=== PATIENT | male | born 1950 | race Caucasian/White ===

== ENCOUNTER → 2016-11-23 | Outpatient (CLI) | payer BC ==
[~2016-11-23] MED LIST: DOXY100C41 PO; FLUT0.15 NAE; GLUCTAB4 PO; HYDR-5688 PO; NAPR1TAB9 PO
[2016-11-23 12:41] LABS: PROLACTIN 8.42 ng/mL; TESTOSTERONE,TOTAL 357.94 ng/dl (241-827)
== END | disposition home or self-care (01) ==
LOC: C.LAB1850 10:36
PROVIDERS: ATTEND Internal Medicine Pulmonary Disease
DX: N64.4 Mastodynia (principal)

== ENCOUNTER → 2016-11-26 | Outpatient (CLI) | payer BC ==
--- NOTE | 2016-11-26 08:54 | DIAGNOSTIC IMAGING REPORT ---
ULTRASOUND ABDOMINAL WALL CLINICAL HISTORY: Palpable bulge. COMPARISON STUDY: No priors. FINDINGS: Real-time, grayscale, and color flow sonography of the ventral upper abdominal wall is performed the site of interest. There is a fat-containing and nonreducible ventral hernia identified at this site. No fluid or bowel is present within the hernia sac. IMPRESSION: There is a nonreducible fat-containing ventral hernia identified at the site of interest. Electronically signed by: Luciano Agarwal M.D. 11/26/2016 8:52 AM Dictated Date/Time: 11/26/2016 8:51 AM
== END | disposition home or self-care (01) ==
LOC: C.ULTR 08:04
PROVIDERS: ATTEND Allergy & Immunology Allergy
DX: R19.00 Intra-abdominal and pelvic swelling, mass and lump, unspecified site (principal); K43.9 Ventral hernia without obstruction or gangrene

== ENCOUNTER → 2016-12-01 | Outpatient (CLI) | payer BC ==
--- NOTE | 2016-12-01 14:09 | MAMMOGRAPHY REPORT ---
MALE BILATERAL DIGITAL DIAGNOSTIC MAMMOGRAM WITH CAD AND TARGETED BILATERAL ULTRASOUND: 12/01/2016 CLINICAL HISTORY: The patient reports bilateral nipple pain/sensitivity for approximately 2 months. He denies any palpable lumps. He is not currently on any medication. TECHNIQUE: Current study was also evaluated with a Computer Aided Detection (CAD) system. Bilatera l CC and MLO views were obtained. COMPARISON: No prior exams were available for comparison. BREAST COMPOSITION: The tissue of both breasts is predominantly fatty. FINDINGS: There is fibroglandular tissue seen in bilateral subareolar and periareolar regions, cons istent with benign gynecomastia. Scattered benign appearing calcifications are noted, without suspi cious masses, calcifications, or areas of architectural distortion noted in either breast. Targeted ultrasound was performed of bilateral subareolar and periareolar regions. Fibroglandular ti ssue is seen in bilateral subareolar and periareolar regions, consistent with benign gynecomastia. No suspicious masses or other suspicious sonographic abnormalities are evident. IMPRESSION: ACR BI-RADS CATEGORY 2: BENIGN, TARGETED ULTRASOUND ACR BI-RADS CATEGORY 2: BENIGN Benign gynecomastia bilaterally, without evidence of malignancy in either breast. Recommend clinica l follow-up. The patient has been verbally notified of the results. Approximately 10% of breast cancers are not detected with mammography. A negative mammographic repor t should not delay biopsy if a clinically suggestive mass is present. Melisa Hernandez M.D. ah/:12/01/2016 08:53:12 [employer] Tender: Klaus DERAS)([place]), [facility] letter sent: Normal 1/2 BI-RADS Code: ACR BI-RADS Category 2: Benign Ultrasound BI-RADS: ACR BI-RADS Category 2: Benign
== END | disposition home or self-care (01) ==
LOC: C.MAMM 08:17
PROVIDERS: ATTEND Internal Medicine Pulmonary Disease
DX: N62 Hypertrophy of breast (principal)

== ENCOUNTER → 2016-12-20 | Outpatient (CLI) | payer BC ==
[2016-12-20 11:45] LABS: BASO % 0.3 %; BASO ABS # 0.03 K/uL (0-0.2); COMPLETE YES; EOS % 4.5 %; HEMATOCRIT 44.1 % (42-52); IG% 0.2 %; LYMPH % 11.1 %; LYMPH ABS # 0.98 K/uL (1.2-3.4); MEAN CELL VOLUME 88.4 fL (80-100); MEAN CORPUSCULAR HEMOGLOBIN 29.5 pg (25-34); MEAN CORPUSCULAR HGB CONC 33.3 g/dl (32-36); MEAN PLATELET VOLUME 10.1 fL (7.4-10.4); MONO % 4.5 %; NEUT % 79.4 %; PLATELET COUNT 293 K/uL (130-400); RED BLOOD COUNT 4.99 M/uL (4.7-6.1); WHITE BLOOD COUNT 8.85 K/uL (4.8-10.8)
[2016-12-20 11:58] LABS: BLOOD UREA NITROGEN 15 mg/dl (7-18); CALCIUM 9.2 mg/dl (8.5-10.1); CARBON DIOXIDE 32 mmol/L (21-32); CHLORIDE 104 mmol/L (98-107); CREATININE 0.89 mg/dl (0.60-1.40); GLUCOSE 92 mg/dl (70-99); POTASSIUM 4.3 mmol/L (3.5-5.1); SODIUM 140 mmol/L (136-145)
== END | disposition home or self-care (01) ==
LOC: C.CPL 10:09
PROVIDERS: ATTEND Surgery
DX: K43.9 Ventral hernia without obstruction or gangrene (principal)

== ENCOUNTER → 2017-01-21 | Day surgery (SDC) | payer BC ==
[2017-01-10 08:33] VITALS: Ht 175.3 cm; Wt 78.2 kg
[~2017-01-21] VITALS: Ht 175.3 cm; Wt 78.2 kg
[~2017-01-21] MED LIST changes: +ATROPINE SULFATE 0.1 MG/ML 5ML SYR IV PRN; +BUPIVACAINE 0.5 % 5 MG/1 ML MPF 30ML VIAL ONE; +CEFAZOLIN 2000 MG/60 ML D5W IV SCH; +DEXAMETHASONE SOD INJ 4 MG/ML VIAL ONE; +EpHEDrine SULFATE INJ 50 MG/ML AMP IV PRN; +FENTANYL CITRATE INJ 50 MCG/1 ML 2 ML VIAL ONE; +FLUMAZENIL 0.1 MG/1 ML 10 ML VIAL IV PRN; +HEPARIN SOD 5000 UNIT/0.5 ML CARP SQ SCH; +HYDROCODONE/ACETAMOPHEN 5/325MG TAB PO PRN; +HYDROmorphone INJ 0.5 MG/0.5 ML SYR IV PRN; +KETOROLAC TROMETHAMINE 15 MG/ML VIAL IV. PRN; +LABETALOL HCL IV 5 MG/ML 20ML IV PRN; +LACTATED RINGER'S 1000ML 1,000 ML IV SCH; +LIDOCAINE HCL 2% 2 ML VIAL (20MG/ML) ONE; +MIDAZOLAM HCL 1 MG/ML 2ML VIAL ONE; +NALOXONE HCL 0.4 MG/1 ML VIAL/CARP IV PRN; +ONDANSETRON INJ 2 MG/ML 2 ML VIAL IV PRN; +ONDANSETRON INJ 2 MG/ML 2 ML VIAL ONE; +PROMETHAZINE HCL INJ 12.5 MG in SODIUM CHLORIDE 0.9% 50ML 50 ML IV PRN; +PROPOFOL IV EMULSION 10 MG/ML 20 ML VIAL IV ONE; +SODIUM CHLORIDE 0.9% 1000ML 1,000 ML IV SCH
--- NOTE | 2017-01-21 09:40 | Discharge Instructions ---
Discharge Instructions Date of Service Jan 21, 2017. Admission Reason for Admission: Ventral Hernia Discharge Discharge Diagnosis / Problem: Ventral Hernia Discharge Goals Goal(s): Decrease discomfort, Improve function Activity Recommendations Activity Limitations: as noted below Lifting Limitations: no more than 10 pounds Exercise/Sports Limitations: until after follow-up appointment May Resume Sexual Activity: after follow-up appointment Shower/Bathe: tomorrow . Instructions / Follow-Up Instructions / Follow-Up Please follow-up with Dr. Mcintyre in 1-2 weeks in the office. Please call [phone] to schedule an appointment. Current Hospital Diet Patient's current hospital diet: Discharge Diet Recommended Diet: Regular Diet Pending Studies Studies pending at discharge: no Medical Emergencies . Who to Call and When: Medical Emergencies: If at any time you feel your situation is an emergency, please call 911 immediately. . Non-Emergent Contact Non-Emergency issues call your: Primary Care Provider, Surgeon Call Non-Emergent contact if: temperature is above 101, your pain is not controlled, wound has increased drainage, wound has increased redness . "Provider Documentation" section prepared by Negin Patrick. VTE Core Measure Inpt VTE Proph given/why not?: Unfractionated heparin SQ, SCD's
--- NOTE | 2017-01-21 09:41 | History and Physical ---
History & Physical Date Jan 21, 2017. Chief Complaint ventral hernia History of Present Illness The patient is a 66 year old male with complaints of Additional History Hepatic Disease: No Endocrine Disorder: No Kidney Disease: No Hypertension: No Heart Disease: No Bleeding Tendencies: No Infectious Diseases: No Allergies Coded Allergies: No Known Allergies (Unverified , 01/21/17) Home Medications Scheduled PRN Hydrocodone/Acetaminophen 5MG/325MG ([place] 5MG/325MG), 1-2 TABLET PO Q4H PRN for Pain Physical Examination Skin: warm/dry Eyes: normal inspection, EOMI Head: normocephalic Neck: supple Respiratory/Chest: normal breath sounds, no respiratory distress Cardiovascular: regular rate, rhythm Abdomen / GI: normal bowel sounds, + pertinent finding (epigastric hernia) Extremities: normal inspection Neurologic/Psych: alert, oriented x 3 Diagnosis ventral hernia discussed options/risks answered questions ok to proceed with open ventral hernia repair/mesh Plan of Treatment open repair with mesh
--- NOTE | 2017-01-21 10:14 | Medical Student: [facility] ---
Immediate Operative Summary Operative Date Jan 21, 2017. Pre-Operative Diagnosis ventral hernia Post-Operative Diagnosis same as above Procedure(s) Performed open ventral hernia repair Surgeon Dr. Mcintyre Braider Tender Surgeon(s) Negin Patrick PA-C Estimated Blood Loss 15cc Findings ventral hernia w/ defect above umbilicus Specimens none Anesthesia general Complication(s) None Disposition Recovery Room / PACU
--- NOTE | 2017-01-21 10:17 | [facility] Operative Report ---
Operative Report Operative Date Jan 21, 2017. Pre-Operative Diagnosis Ventral Hernia Post-Operative Diagnosis same with intra-abdominal fat incarceration Procedure(s) Performed open repair of ventral hernia Surgeon Dr. Christine Mcintyre Mva Reactor Operator Surgeon(s) Negin Patrick PA-C, [place], MSIII Estimated Blood Loss 15cc Findings small epigastric hernia with omental/preperitoneal fat incarceration Specimens none Anesthesia general Complication(s) None Disposition Recovery Room / PACU I attest to the content of the Intraoperative Record and any orders documented therein. Any exceptions are noted below.
[2017-01-21 10:45] VITALS: TEMP 37.5
--- NOTE | 2017-01-21 11:04 | Anesthesia Progress Nt - [facility] ---
Anesthesia Post Op Note Date & Time Jan 21, 2017 at 11:03 Vital Signs Pain Intensity: 0 Vital Signs Past 12 Hours Date Time Temp Pulse Resp B/P Pulse Ox O2 Delivery O2 Flow Rate FiO2 01/21/17 10:45 37.5 60 18 167/77 95 Room Air 01/21/17 10:39 57 10 97 01/21/17 10:39 56 10 01/21/17 10:36 126/89 01/21/17 10:34 54 15 99 01/21/17 10:34 55 15 01/21/17 10:33 37.8 57 16 126/89 97 Room Air 01/21/17 10:31 144/87 01/21/17 10:29 62 12 01/21/17 10:29 63 12 95 01/21/17 10:26 139/108 01/21/17 10:24 56 16 01/21/17 10:24 55 16 100 01/21/17 10:21 121/69 01/21/17 10:19 55 17 100 01/21/17 10:19 55 17 01/21/17 10:16 120/68 01/21/17 10:14 49 10 01/21/17 10:14 49 10 100 01/21/17 10:12 123/70 01/21/17 10:11 131/71 01/21/17 10:10 122/80 01/21/17 10:09 52 01/21/17 10:09 37.0 54 16 122/80 97 Diffusion Mask 6 01/21/17 10:09 52 98 01/21/17 08:15 36.5 65 16 175/53 96 Room Air Notes Mental Status: alert / awake / arousable, participated in evaluation Pt Amnestic to Procedure: Yes Nausea / Vomiting: adequately controlled Pain: adequately controlled Airway Patency, RR, SpO2: stable & adequate BP & HR: stable & adequate Hydration State: stable & adequate Anesthetic Complications: no major complications apparent
[2017-01-21 11:07] VITALS: BP 138/72; PULSE 52; O2SAT 95
--- NOTE | 2017-01-21 13:03 | OPERATIVE REPORT ---
DATE OF OPERATION: 01/21/2017 PREOPERATIVE DIAGNOSIS: Ventral hernia. POSTOPERATIVE DIAGNOSIS: Same with preperitoneal and omental incarceration. PROCEDURE: Open ventral hernia repair. SURGEON: Dr. Mcintyre. HEALTH INFORMATION ADMINISTRATOR: Negin Patrick PA-C. ESTIMATED BLOOD LOSS: Approximately 20 mL COMPLICATIONS: No immediate. ANESTHESIA: General. The patient tolerated the procedure well. OPERATIVE NOTE: After informed consent was obtained, the patient was taken to the operating suite, placed in supine position. After successful placement of laryngeal mask airway, the epigastric area was sterilely prepped and draped in usual fashion. A vertical incision was made directly over the visible bulge. We carried this down through the soft tissue using electrocautery. We continued down through the subcutaneous tissue until we encountered a discrete what initially I thought was a large lipoma. As I dissected the lipoma free, I noticed that it came down to a very tight neck through a small subcentimeter epigastric hernia. I slowly used electrocautery to come through and amputate the preperitoneal fat. There was also a little piece of omentum with it. We passed this off and the remainder of the omentum easily dropped back down into the abdominal cavity. We thoroughly irrigated the wound. Because of the small size of the hernia, I felt the risk-benefit would favor primary repair without mesh. I used 0 Ethibond in interrupted [id number] fashion to close the small defect. We irrigated the wound a final time. There was adequate hemostasis. We closed the deep space using 2-0 Vicryl and then closed the skin using 4-0 Monocryl in a running fashion. Marcaine was injected around the incision, both before incision as well as at the end of the case for postoperative analgesia. Dermabond glue was used as a dressing. The patient was awakened, extubated, and transferred to recovery in stable condition. I attest to the content of the Intraoperative Record and any orders documented therein. Any exceptio ns are noted below.
== END | disposition home or self-care (01) ==
LOC: X.SURG 07:37
PROVIDERS: ATTEND Surgery
DX: K43.9 Ventral hernia without obstruction or gangrene (principal); Z83.3 Family history of diabetes mellitus; Z82.49 Family history of ischemic heart disease and other diseases of the circulatory system; Z82.3 Family history of stroke

== ENCOUNTER 2017-03-20 14:18 | Emergency (ER) | payer BC ==
[~2017-03-20] VITALS: Ht 177.8 cm; Wt 78.0 kg
[2017-03-20 14:34] VITALS: TEMP 36.7; Ht 177.8 cm; Wt 78.0 kg
[2017-03-20] MEDS ORDERED: LIDO/EPINEPHRINE/SOD BICARB 20 ML VIAL INFIL ONE (15:02)
--- NOTE | 2017-03-20 16:00 | DIAGNOSTIC IMAGING REPORT ---
LEFT KNEE 2 VIEWS HISTORY: left knee pain COMPARISON: None. FINDINGS: There is no fracture or dislocation. Moderate knee effusion. Mild osteoarthritis. Anterior soft tissue swelling. No radiopaque foreign bodies. IMPRESSION: No fractures. Moderate left knee effusion. Electronically signed by: Kenji Martinez M.D. 03/20/2017 3:59 PM Dictated Date/Time: 03/20/2017 3:58 PM
[2017-03-20] MEDS ORDERED: FLUT0.15 NAE (16:04)
[2017-03-20] MEDS ORDERED: NAPR1TAB9 PO (16:04)
[2017-03-20] MEDS ORDERED: GLUCTAB4 PO (16:04)
[2017-03-20 16:21] LABS: SYNOVIAL FLUID APPEARANCE CLOUDY; SYNOVIAL FLUID COLOR YELLOW; SYNOVIAL FLUID MONONUC RELAT 12.3 %; SYNOVIAL FLUID POLYNUC RELAT 87.7 %
--- NOTE | 2017-03-20 17:12 | DIAGNOSTIC IMAGING REPORT ---
LEFT LOWER EXTREMITY VENOUS DOPPLER HISTORY: swelling leg COMPARISON STUDY: None. FINDINGS: There is normal compressibility, flow, and augmentation within the left lower extremity deep venous system. There is a 3.7 x 2.5 x 1.4 cm popliteal cyst. IMPRESSION: No DVT within the left lower extremity. Electronically signed by: Kenji Martinez M.D. 03/20/2017 5:11 PM Dictated Date/Time: 03/20/2017 5:10 PM
[2017-03-20] MEDS ORDERED: DOXYCYCLINE HYCLATE 100 MG CAP PO ONE (18:00)
[2017-03-20] MEDS ORDERED: DOXY100C41 PO (18:13)
--- NOTE | 2017-03-20 18:16 | EMERGENCY ROOM VISIT NOTE ---
History Report prepared by Criss: Denisha Doan Under the Supervision of: Dr. Naldo Dougherty D.O. First contact with patient: 14:49 Chief Complaint: LEG PAIN,LEG INJURY Stated Complaint: L AND R KNEE PAIN/L IS [place] History of Present Illness The patient is a 66 year old male who presents to the Emergency Room with complaints of persistent left knee edema that began four days ago. He currently rates his discomfort as a 5/10 in severity. The patient states that over the past several weeks he has been experiencing bilateral knee aches. He states that each morning he wakes up with aches in his knees, but states that over the course of the day, his symptoms had resolved. The patient reports that on he developed edema to his left knee. He states that his swelling worsened over the last several days, stating that it has spread down to his ankle. The patient states that today he had difficulty ambulating secondary to the edema. The patient denies any history of blood clots. 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 The patient states that he was reading up on Lyme Disease and became concerned that he may have developed Lyme Disease. He denies any recent injury Source of History: patient Onset: four days ago Position: knee (left) Symptom Intensity: 5/10 Quality: other (edema) Timing: other (persistent) Note: Associated Symptoms: difficulty ambulating secondary to edema, aches in bilateral knees. Review of Systems See HPI for pertinent positives & negatives. A total of 10 systems reviewed and were otherwise negative. Past Medical & Surgical Surgical Problems: (1) H/O hernia repair (2) Nose septum deviation Family History Cancer Diabetes mellitus Heart disease Hypertension Kidney disease Kidney stones Seizures Social History Smoking Status: Never Smoker Smokeless Tobacco Use: No Alcohol Use: none Marital Status: Housing Status: lives with significant other Occupation Status: retired Current/Historical Medications Scheduled Doxycycline (Monohydrate) (Monodox), 1 CAP PO BID Uquyhpiasmb-Fgy-Fts C-Manganes (Glucosamine Msm Complex), 3 TAB PO DAILY Scheduled PRN Fluticasone Propionate (Nasal) (Flonase Allergy Relief), 1-2 SPRAYS JAYDEN DAILY PRN for Nasal Congestion Naproxen (Aleve), 220 MG PO Q12 PRN for Pain Allergies Coded Allergies: No Known Allergies (Unverified , 3/17/17) Physical Exam Vital Signs Date Time Temp Pulse Resp B/P Pulse Ox O2 Delivery O2 Flow Rate FiO2 03/20/17 16:36 50 18 114/56 97 Room Air 03/20/17 14:34 36.7 52 20 175/79 98 Room Air Physical Exam CONSTITUTIONAL/VITAL SIGNS: Reviewed / noted above. GENERAL: Non-toxic in appearance. INTEGUMENTARY: Warm, dry, and [place]. HEAD: Normocephalic. EYES: without scleral icterus or trauma. ENT/OROPHARYNX: clear and moist. LYMPHADENOPATHY/NECK: Is supple without lymphadenopathy or meningismus. RESPIRATORY: Lungs clear and equal. CARDIOVASCULAR: Regular rate and rhythm. GI/ABDOMEN: Soft and nontender. No organomegaly or pulsatile mass. No rebound or guarding. Normal bowel sounds. EXTREMITIES: Left knee effusion, edema of left lower extremity. BACK: No CVA tenderness. NEUROLOGICAL: Intact without focal deficits. PSYCHIATRIC: normal affect. MUSCULOSKELETAL: Normally developed with good muscle tone. Medical Decision & Procedures ER Provider Diagnostic Interpretation: Radiology results as stated below per my review and radiologist interpretation: LEFT LOWER EXTREMITY VENOUS DOPPLER HISTORY: swelling leg COMPARISON STUDY: None. FINDINGS: There is normal compressibility, flow, and augmentation within the left lower extremity deep venous system. There is a 3.7 x 2.5 x 1.4 cm popliteal cyst. IMPRESSION: No DVT within the left lower extremity. Electronically signed by: Kenji Martinez M.D. 03/20/2017 5:11 PM Dictated Date/Time: 03/20/2017 5:10 PM LEFT KNEE 2 VIEWS HISTORY: left knee pain COMPARISON: None. FINDINGS: There is no fracture or dislocation. Moderate knee effusion. Mild osteoarthritis. Anterior soft tissue swelling. No radiopaque foreign bodies. IMPRESSION: No fractures. Moderate left knee effusion. Electronically signed by: Kenji Martinez M.D. 03/20/2017 3:59 PM Dictated Date/Time: 03/20/2017 3:58 PM Laboratory Results Test 03/20/17 15:30 03/20/17 15:32 Synovial Fluid Source KNEE Synovial Fluid Color YELLOW Synovial Fluid Appearance CLOUDY Synovial Fluid WBC 91922 /uL (0-200) Synovial Fluid RBC < 3000 /uL Synovial Fluid Polynuclear WBCs % 87.7 % Synovial Fluid Mononuclear WBCs % 12.3 % Synovial Fluid Glucose 4 mg/dl Synovial Fluid Total Protein 4 g/dl Synovial Fluid Uric Acid 4.0 mg/dl Lyme Disease IgG Antibody POS (NEG) Laboratory results as stated above per my review. ED Course 1452: Previous medical records were reviewed. The patient was evaluated in room C2B. A complete history and physical examination was performed. 1500: At this time I aspirated the patient's knee. See procedure note for further detail. 1502: Ordered Lidocaine/Epinephrine 20 ml INFIL. 1800: I reevaluated the patient and he is resting comfortably. I discussed the exam findings with him and I discussed the treatment plan. He verbalized complete understanding and agreement. He is ready to go home. Ordered Vibramycin Cap 100 mg PO. Medical Decision Differential diagnosis: Etiologies such as DVT, musculoskeletal, infection, joint effusion, trauma, lymphedema, idiopathic, CHF, as well as others were entertained. This is a 66-year-old male who presents to the ED with a chief complaint of left knee joint swelling, left leg swelling and discomfort. Details listed above. The patient's symptoms have been ongoing for at least 4 days. He also reported having some symptoms earlier this year with regards to a strange rash and some swelling of his left elbow. The patient's exam is noted above. He has a left knee joint effusion as well as some swelling of the left leg. X-ray of the left knee reveals moderate left joint effusion. Ultrasound did not show DVT. Fluid analysis from the left knee joint shows 19,840. Lyme test was positive for the blood. Lyme test for the joint fluid is pending. Crystals are pending. The patient was told the results. He was started on doxycycline. He'll be placed on this for 28 days. He was given orthopedic follow-up. He will take Tylenol or Motrin as needed for discomfort. Impression Primary Impression: Lyme arthritis Scribe Attestation The scribe's documentation has been prepared under my direction and personally reviewed by me in its entirety. I confirm that the note above accurately reflects all work, treatment, procedures, and medical decision making performed by me. Departure Information Dispostion Home / Self-Care Prescriptions Doxycycline (Monohydrate) (MONODOX) 100 Mg Cap 1 CAP PO BID for 28 Days, #56 CAP Prov: Naldo Dougherty D.O. 03/20/17 Referrals Arsenio Lugo M.D. (PCP) Yanick Gerard M.D. Forms HOME CARE DOCUMENTATION FORM, IMPORTANT VISIT INFORMATION Patient Instructions ED Lyme Disease, [facility] Additional Instructions Doxycycline as prescribed for 28 days. Follow-up PCP/orthopedics for additional blood/joint fluid tests that are pending. Take Tylenol or Motrin as needed for pain. Return for any concerns.
[2017-03-20 18:26] VITALS: BP 120/63; PULSE 88; O2SAT 96
[2017-03-20 21:25] LABS: SYNOVIAL FLD SPECIFIC GRAVITY 1.027
[2017-03-24 23:50] LABS: 18KDIGG BAND REACTIVE (NONREACTIVE); 23KDIGG BAND REACTIVE (NONREACTIVE); 23KDIGM BAND REACTIVE (NONREACTIVE); 28KDIGG BAND REACTIVE (NONREACTIVE); 30KDIGG BAND REACTIVE (NONREACTIVE); 39KDIGG BAND REACTIVE (NONREACTIVE); 39KDIGM BAND NONREACTIVE (NONREACTIVE); 41KDIGG BAND REACTIVE (NONREACTIVE); 41KDIGM BAND REACTIVE (NONREACTIVE); 45KDIGG BAND REACTIVE (NONREACTIVE); 58KDIGG BAND REACTIVE (NONREACTIVE); 66KDIGG BAND REACTIVE (NONREACTIVE); 93KDIGG BAND REACTIVE (NONREACTIVE)
--- NOTE | 2017-03-25 18:28 | Pharmacy Progress Note ---
ED Pharmacist Culture FollowUp Date of Service: March 25, 2017. Patient's Lyme IgG and IgM Western Blots both resulted positive today. He had been dx with Lyme Arthritis on 03/20/17 and was placed on appropriate therapy (Doxycycline 100mg PO BID x 28 days) I notified the patient of these results. He is taking the Doxy as prescribed without concerns. The patient did ask that I forward the results to Dr Lugo's office as he has an appointment in the near future. I faxed the results to Dr Lugo's office: [phone].
== END 2017-03-20 18:27 | disposition home or self-care (01) ==
LOC: C.EDB 14:21 → C.EDC 18:27
DX: A69.23 Arthritis due to Lyme disease (principal); Z80.9 Family history of malignant neoplasm, unspecified; Z83.3 Family history of diabetes mellitus; Z82.49 Family history of ischemic heart disease and other diseases of the circulatory system; Z84.1 Family history of disorders of kidney and ureter

== ENCOUNTER → 2017-07-19 | Outpatient (CLI) | payer BC ==
[~2017-07-19] MED LIST changes: -ATROPINE SULFATE 0.1 MG/ML 5ML SYR IV PRN; -BUPIVACAINE 0.5 % 5 MG/1 ML MPF 30ML VIAL ONE; -CEFAZOLIN 2000 MG/60 ML D5W IV SCH; -DEXAMETHASONE SOD INJ 4 MG/ML VIAL ONE; -DOXY100C41 PO; -EpHEDrine SULFATE INJ 50 MG/ML AMP IV PRN; -FENTANYL CITRATE INJ 50 MCG/1 ML 2 ML VIAL ONE; -FLUMAZENIL 0.1 MG/1 ML 10 ML VIAL IV PRN; -HEPARIN SOD 5000 UNIT/0.5 ML CARP SQ SCH; -HYDR-5688 PO; -HYDROCODONE/ACETAMOPHEN 5/325MG TAB PO PRN; -HYDROmorphone INJ 0.5 MG/0.5 ML SYR IV PRN; -KETOROLAC TROMETHAMINE 15 MG/ML VIAL IV. PRN; -LABETALOL HCL IV 5 MG/ML 20ML IV PRN; -LACTATED RINGER'S 1000ML 1,000 ML IV SCH; -LIDOCAINE HCL 2% 2 ML VIAL (20MG/ML) ONE; -MIDAZOLAM HCL 1 MG/ML 2ML VIAL ONE; -NALOXONE HCL 0.4 MG/1 ML VIAL/CARP IV PRN; -ONDANSETRON INJ 2 MG/ML 2 ML VIAL IV PRN; -ONDANSETRON INJ 2 MG/ML 2 ML VIAL ONE; -PROMETHAZINE HCL INJ 12.5 MG in SODIUM CHLORIDE 0.9% 50ML 50 ML IV PRN; -PROPOFOL IV EMULSION 10 MG/ML 20 ML VIAL IV ONE; -SODIUM CHLORIDE 0.9% 1000ML 1,000 ML IV SCH
[2017-07-19 10:12] LABS: URINE APPEARANCE CLEAR (CLEAR); URINE BILIRUBIN NEG (NEG); URINE COLOR YELLOW; URINE NITRITE NEG (NEG); URINE PH 7.5 (4.5-7.5); URINE SPECIFIC GRAVITY 1.018 (1.000-1.030); UROBILINOGEN NEG (NEG)
[2017-07-19 10:14] LABS: BASO % 0.7 %; BASO ABS # 0.03 K/uL (0-0.2); COMPLETE YES; EOS % 6.9 %; IG% 0.2 %; LYMPH % 27.2 %; LYMPH ABS # 1.22 K/uL (1.2-3.4); MEAN CELL VOLUME 89.7 fL (80-100); MEAN CORPUSCULAR HEMOGLOBIN 30.8 pg (25-34); MEAN CORPUSCULAR HGB CONC 34.4 g/dl (32-36); MEAN PLATELET VOLUME 10.1 fL (7.4-10.4); MONO % 10.9 %; NEUT % 54.1 %; PLATELET COUNT 217 K/uL (130-400); RED BLOOD COUNT 5.35 M/uL (4.7-6.1); WHITE BLOOD COUNT 4.48 K/uL (4.8-10.8)
[2017-07-19 10:17] LABS: MANUAL MICROSCOPIC REQUIRED? NO; REVIEW REQ? NO
[2017-07-19 10:23] LABS: ALT/SGPT 25 U/L (12-78); AST/SGOT 18 U/L (15-37); BLOOD UREA NITROGEN 17 mg/dl (7-18); BUN/CREATININE RATIO 17.3 (10-20); CALCIUM 9.2 mg/dl (8.5-10.1); CARBON DIOXIDE 29 mmol/L (21-32); CHLORIDE 105 mmol/L (98-107); CREATININE 0.97 mg/dl (0.60-1.40); GLUCOSE 91 mg/dl (70-99); SODIUM 139 mmol/L (136-145)
[2017-07-19 10:34] LABS: ALB/GLOB RATIO 1.1 (0.9-2); ALKALINE PHOSPHATASE 89 U/L (45-117); CHOLESTEROL 196 mg/dl (0-200); CHOLESTEROL/HDL RATIO 3.3; HDL CHOLESTEROL 60 mg/dl; LDL CHOLESTEROL CALCULATED 110 mg/dl; TRIGLYCERIDES 130 mg/dl (0-150); VERY LOW DENSITY LIPOPROT CALC 26 mg/dl
[2017-07-19 13:44] LABS: LYME DISEASE AB IGG POS (NEG); LYME DISEASE AB IGM EQUIVOCAL (NEG)
[2017-07-26 01:40] LABS: 18KDIGG BAND REACTIVE (NONREACTIVE); 23KDIGG BAND REACTIVE (NONREACTIVE); 23KDIGM BAND REACTIVE (NONREACTIVE); 28KDIGG BAND REACTIVE (NONREACTIVE); 30KDIGG BAND REACTIVE (NONREACTIVE); 39KDIGG BAND REACTIVE (NONREACTIVE); 39KDIGM BAND REACTIVE (NONREACTIVE); 41KDIGG BAND REACTIVE (NONREACTIVE); 41KDIGM BAND NONREACTIVE (NONREACTIVE); 45KDIGG BAND REACTIVE (NONREACTIVE); 58KDIGG BAND REACTIVE (NONREACTIVE); 66KDIGG BAND REACTIVE (NONREACTIVE); 93KDIGG BAND REACTIVE (NONREACTIVE)
== END | disposition home or self-care (01) ==
LOC: C.LAB1850 09:18
PROVIDERS: ATTEND Internal Medicine Pulmonary Disease
DX: Z00.00 Encounter for general adult medical examination without abnormal findings (principal); N40.0 Benign prostatic hyperplasia without lower urinary tract symptoms; M71.20 Synovial cyst of popliteal space [Baker], unspecified knee; M15.9 Polyosteoarthritis, unspecified; R97.20 Elevated prostate specific antigen [PSA]